=== PATIENT | male | born 1950 | race Caucasian/White ===

== ENCOUNTER 2017-08-04 07:32 | Day surgery (SDC) | payer OTHER ==
[2017-07-29 18:58] VITALS: BMI 29.4
[2017-08-04] MEDS ORDERED: PROPOFOL 20 ML ONE ×2 (07:34)
[2017-08-04] MEDS ORDERED: LIDOCAINE HCL/PF 2% SDV 5ML VIAL ONE (07:34)
[2017-08-04 09:06] VITALS: TEMP 98.2
[2017-08-04 09:33] VITALS: BP 139/81; PULSE 61
--- NOTE | 2017-08-05 09:33 | PATH ---
Surgical Pathology Report Patient Name: BALTAZAR MORALES [facility]. Rec. #: [id number] /Age/Gender: 1950 (Age: 66) / M Account: [id number] Location: [facility] Taken: 08/04/2017 Received: 08/04/2017 Reported: 08/05/2017 Physicians: Randal Etienne M.D. Specimen(s) Received A: PROXIMAL RIGHT COLON B: SPLENIC FLEXURE BIOPSY Clinical History History of polyps Final Diagnosis A. COLON, PROXIMAL RIGHT, BIOPSY: TUBULAR ADENOMA B. COLON, SPLENIC FLEXURE, BIOPSY: TUBULAR ADENOMA Electronically Signed Hunter Kline M.D. Gross Description A. Received in formalin, labeled "proximal right colon" is a christian, irregular portion of soft tissue measuring 0.2 cm. in greatest dimension. The specimen is submitted in toto in one cassette. B. Received in formalin, labeled "splenic flexure" is a christian, irregular portion of soft tissue measuring 0.2 cm. in greatest dimension. The specimen is submitted in toto in one cassette. [facility]/08/04/2017 [facility]/08/04/2017
== END 2017-08-04 09:25 | disposition home or self-care (01) ==
LOC: FASU-ENDO 07:32
PROVIDERS: ATTEND Internal Medicine Gastroenterology
PROC: 0DBK8ZX Excision of Ascending Colon, Via Natural or Artificial Opening Endoscopic, Diagnostic (ICD-10-PCS; principal; 2017-08-04 08:34)
PROC: 0DBL8ZX Excision of Transverse Colon, Via Natural or Artificial Opening Endoscopic, Diagnostic (ICD-10-PCS; 2017-08-04 08:34)
DX: Z86.010 Personal history of colon polyps (principal); D12.2 Benign neoplasm of ascending colon; D12.3 Benign neoplasm of transverse colon
CPT/HCPCS: 82962; 88305-TC